=== PATIENT | male | born 1975 | race Caucasian/White ===

== ENCOUNTER → 2018-08-02 | Outpatient (CLI) | payer BC, OTHER ==
--- NOTE | 2018-08-02 09:58 | REP ---
Clinical: Right groin pain and swelling. Technique: Real time stafford scale and color evaluation using linear high frequency transducer. Findings: Ultrasound examination of the right groin with left groin for comparison demonstrates mild right-sided subcutaneous edema and lymph nodes measuring 14 mm and 11 mm maximal diameter which are tender by sonographic palpation. No free fluid, mass lesion or hernia identified. Impression: Mild right groin edema and two tender lymph nodes identified. No free fluid, mass or hernia. Electronically Signed by Juan Serna MD 08/02/2018 09:49 A
== END ==
LOC: M RAD 08:30
PROVIDERS: ATTEND Physician Assistant Medical
DX: K40.90 Unilateral inguinal hernia, without obstruction or gangrene, not specified as recurrent (principal); R59.0 Localized enlarged lymph nodes

== ENCOUNTER 2018-08-24 08:37 | Emergency (ER) | payer BC, OTHER ==
[~2018-08-24] VITALS: Ht 170.2 cm; Wt 80.9 kg
[2018-08-24] MEDS ORDERED: NS 1,000 ML IV ONE (09:15)
[2018-08-24 09:35] LABS: BASO % 0.6 % (0.0-1.0); EOS # 0.1 10^3/uL (0.0-0.50); EOS % 2.1 % (0.0-3.0); HEMATOCRIT 46.6 % (42.0-52.0); HEMOGLOBIN 15.6 g/dl (13.5-17.5); LYMPH # 2.1 10^3/uL (1.5-4.5); LYMPH % 31.1 % (24.0-44.0); MEAN CORPUSCULAR HEMOGLOBIN 28.8 pg (27.0-33.0); MEAN CORPUSCULAR HGB CONC 33.5 g/dl (32.0-36.5); MEAN CORPUSCULAR VOLUME 86.1 fl (80.0-96.0); MONO # 0.6 10^3/uL (0.0-0.8); MONO % 9.4 % (0.0-5.0); NEUTROPHILS # 3.7 10^3/uL (1.8-7.7); NEUTROPHILS % 56.3 % (36.0-66.0); PLATELET COUNT, AUTOMATED 269 10^3/uL (150-450); RED BLOOD COUNT 5.41 10^6/uL (4.30-6.10); WHITE BLOOD COUNT 6.6 10^3/uL (4.0-10.0)
[2018-08-24 10:03] LABS: ALBUMIN 4.3 GM/DL (3.2-5.2); ALT/SGPT 25 U/L (12-78); AMYLASE 57 U/L (25-115); BILIRUBIN,DIRECT 0.2 MG/DL (0.0-0.2); BILIRUBIN,TOTAL 0.8 MG/DL (0.2-1.0); BLOOD UREA NITROGEN 9 MG/DL (7-18); CALCIUM LEVEL 9.1 MG/DL (8.5-10.1); CARBON DIOXIDE LEVEL 30 MEQ/L (21-32); CHLORIDE LEVEL 102 MEQ/L (98-107); CREATININE FOR GFR 0.96 MG/DL (0.70-1.30); GLOMERULAR FILTRATION RATE > 60.0 (>60); GLUCOSE, FASTING 87 MG/DL (70-100); LIPASE 83 U/L (73-393); POTASSIUM SERUM 4.6 MEQ/L (3.5-5.1); SODIUM LEVEL 141 MEQ/L (136-145); TOTAL PROTEIN 7.5 GM/DL (6.4-8.2)
[2018-08-24] MEDS ORDERED: ISOVUE-370 76% 100ML VIAL (Q9967) As Ordered ONE (10:06)
--- NOTE | 2018-08-24 10:57 | REP ---
CT of the abdomen and pelvis with IV contrast, without bowel contrast: Comparison is 05/16/2008. The patient reportedly has an appendectomy. The visualized lung john are unremarkable. The hepatic parenchyma, gallbladder, pancreas, spleen, adrenals, kidneys and abdominal aorta are unremarkable. There is no retroperitoneal or mesenteric adenopathy or mass. There is no bowel distension or obstruction. There is no diverticulosis or diverticulitis. Pelvis: There are surgical clips at the cecal tip compatible with appendectomy. There is no ascites or adenopathy. The bladder is unremarkable. Impression: There is no evidence of diverticulosis or diverticulitis. There is no bowel distension or obstruction. Appendectomy. Otherwise, negative CT of the abdomen and pelvis. Electronically Signed by Scott Potter MD 08/24/2018 10:48 A
[2018-08-24 11:10] VITALS: BP 122/78
== END 2018-08-24 11:15 | disposition home or self-care (01) ==
LOC: M ED 08:37
DX: R10.12 Left upper quadrant pain (principal)
CPT/HCPCS: 74177; 80048; 80076; 81001; 82150; 83690; 85025; 96360; 96361; 99284; Q9967

== ENCOUNTER → 2022-02-19 | Outpatient (CLI) | payer BC, OTHER | LOC: M LABSMTC 10:14 | PROVIDERS: ATTEND Anesthesiology | DX: Z01.818 Encounter for other preprocedural examination (principal); Z11.52 Encounter for screening for COVID-19 ==

== ENCOUNTER 2022-02-22 08:06 | Day surgery (SDC) | payer BC, OTHER ==
[~2022-02-22] VITALS: Ht 170.2 cm; Wt 83.9 kg
[~2022-02-22 08:06] MED LIST: NS 1,000 ML IV ONE
[2022-02-22] MEDS ORDERED: propofoL 200 MG/20 ML VIAL As Ordered ONE (09:06)
[2022-02-22] MEDS ORDERED: LIDOCAINE 2% 100MG/5ML SDV (FOR ANES.) As Ordered ONE (09:06)
[2022-02-22 09:45] VITALS: BP 125/71
== END 2022-02-22 09:56 | disposition home or self-care (01) ==
LOC: M OPP 08:06
PROVIDERS: ATTEND Internal Medicine Gastroenterology
DX: Z12.11 Encounter for screening for malignant neoplasm of colon (principal); K63.5 Polyp of colon; K57.30 Diverticulosis of large intestine without perforation or abscess without bleeding; K64.0 First degree hemorrhoids; Z88.0 Allergy status to penicillin

== ENCOUNTER → 2025-03-20 | Outpatient (REF) | payer OTHER, BC | LOC: M LAB REF 14:28 | PROVIDERS: ATTEND Family Medicine | DX: R74.01 Elevation of levels of liver transaminase levels (principal) ==